=== PATIENT | female | born 1995 | race Caucasian/White ===

== ENCOUNTER 2018-12-27 16:07 | Emergency (ER) | payer MEDICAID ==
[2018-12-27 16:52] LABS: Bilirubin Negative (Negative); Blood, Urine Negative (Negative); Glucose, Urine (Dipstick) Negative (Negative); Leukocyte Negative (Negative); Nitrite Negative (Negative); Protein, Urine (Dipstick) Negative (Neg-Trace); Urobilinogen 0.2 mg/dL (Less than 2)
[2018-12-27 16:53] LABS: Clarity Hazy (Clear)
--- NOTE | 2018-12-27 17:00 | RAD ---
LEFT HIP TWO VIEWS: INDICATIONS: Pain. FINDINGS: No evidence of fracture or dislocation. There are phleboliths overlying the pelvis. IMPRESSION: No acute fracture of the left hip. POS: [facility]
== END 2018-12-27 17:12 | disposition home or self-care (01) ==
LOC: MADERS 16:07
DX: S76.012A Strain of muscle, fascia and tendon of left hip, initial encounter (principal); J45.909 Unspecified asthma, uncomplicated; X50.1XXA Overexertion from prolonged static or awkward postures, initial encounter
CPT/HCPCS: 81003

== ENCOUNTER 2018-12-30 16:15 | Emergency (ER) | payer MEDICAID ==
[2018-12-30 16:58] LABS: #Basophils 0.1 thou/uL (0.0-0.2); #Eosinphils 0.3 thou/uL (0.0-0.7); #Lymphocytes 3.2 thou/uL (1.20-3.40); #Neutrophils 5.1 thou/uL (1.40-6.50); %Eosinophils 3.1 % (0.0-10.0); %Lymphocytes 32.8 % (21.0-51.0); %Monocytes 10.2 % (0.0-10.0); %Neutrophils 52.9 % (42.0-75.0); Hemoglobin 14.8 g/dL (12.0-16.0); Mean Corpuscular HGB CONC 33.9 g/dL (32.0-36.0); Mean Corpuscular Hemoglobin 30.3 pg (27.0-31.0); Mean Corpuscular Volume 89.5 fL (78.0-98.0); Mean Platelet Volume 8.2 fL (7.4-10.4); Platelet Count 235 thou/uL (130-400); RBC Distribution Width 10.9 % (11.5-14.5); Red Blood Cell (RBC) Count 4.87 mill/uL (4.20-5.40); White Blood Cell (WBC) Count 9.6 thou/uL (4.8-10.8)
[2018-12-30 17:07] LABS: BHCG - Serum Negative (NEGATIVE); Pregs Control Background? CLEAR/WHITE (CLR/WHITE); Pregs Control Bar Appear? YES (CONTROL BAR)
[2018-12-30 17:09] LABS: Anion Gap 15 mmol/L (10-20); BUN (Urea Nitrogen) 10 mg/dL (7.0-18.7); Calc. Creatinine Clearance 0 mL/min (70-130); Calcium 9.7 mg/dL (7.8-10.44); Carbon Dioxide 22 mmol/L (22-29); Chloride 108 mmol/L (98-107); Estimated GFR-MDRD Greater than 90; Glucose 90 mg/dL (70-105); Potassium 3.8 mmol/L (3.5-5.1); Sodium 141 mmol/L (136-145)
--- NOTE | 2018-12-30 17:57 | CT ---
CT Brain WO Con History: Numbness Comparison: None. Findings: Mild right maxillary mucosal sinus disease. Remainder of the paranasal sinuses are clear as well as the mastoids. No acute hemorrhage or infarct. No midline shift or mass effect. Ventricular size and extra-axial CSF spaces are normal. Impression: No acute intracranial abnormality.
[2018-12-30] MEDS ORDERED: Aspirin 325 MG TAB ONE (18:15)
== END 2018-12-30 18:24 | disposition home or self-care (01) ==
LOC: MADERS 16:15
DX: R20.2 Paresthesia of skin (principal); J45.909 Unspecified asthma, uncomplicated
CPT/HCPCS: 70450; 80048; 84703; 85025

== ENCOUNTER 2019-01-10 10:16 | Emergency (ER) | payer MEDICAID ==
[2019-01-10 10:50] LABS: Pregu Control Background? CLEAR/WHITE (CLR/WHITE); Pregu Control Bar Appear? YES (CONTROL BAR); Specific Gravity 1.021 (1.002-1.036)
[2019-01-10 10:52] LABS: Pregnancy Test - Urine (BHCG) Negative (Negative)
[2019-01-10] MEDS ORDERED: Ondansetron ODT 4 MG TAB ONE (11:50)
[2019-01-10] MEDS ORDERED: Oseltamivir 75 MG CAP ONE (11:50)
== END 2019-01-10 12:04 | disposition home or self-care (01) ==
LOC: MADERS 10:16
DX: J11.1 Influenza due to unidentified influenza virus with other respiratory manifestations (principal); J45.909 Unspecified asthma, uncomplicated; F31.9 Bipolar disorder, unspecified
CPT/HCPCS: 81025; 87804; 99283; Q0162

== ENCOUNTER 2019-01-16 08:50 | Emergency (ER) | payer OTHER ==
[2019-01-16] MEDS ORDERED: Ondansetron ODT 4 MG TAB ONE (09:14)
== END 2019-01-16 09:45 | disposition home or self-care (01) ==
LOC: MADERS 08:50
DX: J02.9 Acute pharyngitis, unspecified (principal); R11.2 Nausea with vomiting, unspecified; J45.909 Unspecified asthma, uncomplicated; F31.9 Bipolar disorder, unspecified; Z79.899 Other long term (current) drug therapy
CPT/HCPCS: 87081; 87430; 99284; Q0162

== ENCOUNTER 2019-03-03 15:58 | Emergency (ER) | payer MEDICAID, OTHER ==
[2019-03-03] MEDS ORDERED: Lidocaine 1% 20 ML MDV ONE (16:48)
[2019-03-03] MEDS ORDERED: cefTRIAXone\\ROCEPHIN 1 GM VIAL ONE (16:48)
[2019-03-03] MEDS ORDERED: Ondansetron ODT 4 MG TAB ONE (16:48)
[2019-03-03] MEDS ORDERED: Dexamethasone 10 MG/ML VIAL ONE (16:48)
== END 2019-03-03 18:27 | disposition home or self-care (01) ==
LOC: MADERS 15:58
DX: J15.9 Unspecified bacterial pneumonia (principal); J45.909 Unspecified asthma, uncomplicated; R11.2 Nausea with vomiting, unspecified; F31.9 Bipolar disorder, unspecified
CPT/HCPCS: 87804; 96372; 99283; J0696; J1100; J2001; Q0162